=== PATIENT | male | born 1960 | race Asian ===

== ENCOUNTER 2017-06-19 06:39 | Day surgery (SDC) | payer OTHER ==
[~2017-06-19 06:39] MED LIST: Acetaminophen TAB* 325 MG PO PRN; Buffered Lidocaine 0.9% SYRIN* 5 ML/SYR SYRINGE INTRADERM ONE
[2017-06-19] MEDS ORDERED: Midazolam* 1 MG/ML 2 ML VIAL (2 MG) ONE ×2 (07:27→07:47)
[2017-06-19 08:20] VITALS: BP 113/89
--- NOTE | 2017-06-19 09:04 | OP ---
DATE OF OPERATION: 06/19/17 - [facility] DATE OF : 58 SURGEON: López Anne MD. ANESTHESIA: Monitored anesthesia care. PRE-OP DIAGNOSIS: Cataract, right eye. POST-OP DIAGNOSIS: Cataract, right eye. OPERATIVE PROCEDURE: Cataract surgery of the right eye. IMPLANTS: SN60WF 13.0 diopter lens to the right eye. COMPLICATIONS: None. DESCRIPTION OF PROCEDURE: The patient was given phenylephrine 2.5% and cyclopentolate 1% eyedrops to the operative eye in the preoperative area. The patient was brought to the operating room where a time-out was taken to identify the correct patient, site, and side of surgery. The patient's right eye was prepped and draped in the usual sterile fashion with 5% Betadine. A second time- out was taken to verify the correct patient, site, and side of surgery. A lid speculum was placed to the right eye. A 1 mm paracentesis blade was used to make a clear corneal incision in the superotemporal position. Preservative-free 1% lidocaine was injected into the anterior chamber. DisCoVisc was injected into the anterior chamber. A 2.75 mm keratome blade was used to make a triplanar incision at the inferotemporal position. A cystotome initiated a capsulorrhexis, which was completed with Utrata forceps in a continuous and curvilinear manner. Hydrodissection of the lens was performed with BSS on a cannula. The lens could be spun in the capsular bag. The phacoemulsification handpiece was used with a divide- and-conquer technique to remove the nucleus in its entirety with 10.99 CDE. The I/A handpiece then removed the residual cortical lens material. DisCoVisc was injected to inflate the capsular bag. The planned SN60WF 13.0 diopter lens was injected in a capsular bag. The residual DisCoVisc was removed from the eye with the I/A handpiece. The corneal incisions were hydrated and no leaks occurred at physiologic pressure around 20 mmHg per palpation. The lid speculum was removed and drapes removed. Maxitrol ointment was placed on the surface of the operative eye. An adhesive patch and shield was placed on the operative eye. The patient was taken to the postoperative area in stable condition. [id number]/[facility] #: [id number] JOHN
[2017-06-19] MEDS ORDERED: Cyclopentolate 1% OPTH.SOL* 2 ML BTL ONE (11:50)
[2017-06-19] MEDS ORDERED: Phenylephrine 2.5% OPTH.SOL* 2 ML BTL ONE (11:50)
[2017-06-19] MEDS ORDERED: acetaZOLAMIDE TAB* 250 MG ONE (11:50)
[2017-06-19] MEDS ORDERED: Buffered Lidocaine 0.9% SYRIN* 5 ML/SYR SYRINGE ONE (11:50)
[2017-06-19] MEDS ORDERED: Lidocaine 1% MPF* 2 ML VIAL ONE (11:50)
[2017-06-19] MEDS ORDERED: Tropicamide 1% OPTH.SOL* BTL ONE (11:50)
[2017-06-19] MEDS ORDERED: Povidone Iodine 5% OPTH* 30 ML BTL ONE (11:50)
[2017-06-19] MEDS ORDERED: Flurbiprofen 0.03% OPTH.SOL* 2.5 ML BTL ONE (11:50)
[2017-06-19] MEDS ORDERED: Neomycin/Polymy/Dex OPHTH.OIN* 3.5 GM ONE (11:50)
[2017-06-19] MEDS ORDERED: Tetracaine 0.5% OPTH.SOL 4 ML* 1 DROP BTL ONE (11:50)
== END 2017-06-19 08:50 | disposition home or self-care (01) ==
LOC: OREAST 06:39
PROVIDERS: ATTEND Student in an Organized Health Care Education/Training Program
DX: H25.13 Age-related nuclear cataract, bilateral (principal); E78.00 Pure hypercholesterolemia, unspecified; R51 Headache; I10 Essential (primary) hypertension; R73.01 Impaired fasting glucose; G47.30 Sleep apnea, unspecified; R76.11 Nonspecific reaction to tuberculin skin test without active tuberculosis; Z79.82 Long term (current) use of aspirin; Z88.0 Allergy status to penicillin; N41.9 Inflammatory disease of prostate, unspecified
CPT/HCPCS: A9270-GY; J2250; V2632

== ENCOUNTER 2017-06-26 06:22 | Day surgery (SDC) | payer OTHER ==
[2017-06-26] MEDS ORDERED: Midazolam* 1 MG/ML 2 ML VIAL (2 MG) ONE (07:24)
[2017-06-26 08:20] VITALS: BP 138/94
--- NOTE | 2017-06-26 08:50 | OP ---
DATE OF OPERATION: 06/26/17 - [facility] DATE OF : 58 SURGEON: López Anne MD ANESTHESIOLOGIST: Iliana Beatty MD ANESTHESIA: Monitored anesthesia care. PRE-OP DIAGNOSIS: Cataract, left eye. POST-OP DIAGNOSIS: Cataract, left eye. OPERATIVE PROCEDURE: Cataract surgery of the left eye. IMPLANTS: SN60WF 12.5 diopter lens, left eye. COMPLICATIONS: None. DESCRIPTION OF PROCEDURE: The patient was given phenylephrine 2.5% and cyclopentolate 1% eye drops to the operative eye in the preoperative area. The patient was brought to the operating room where a time-out was taken to identify the correct patient, side and site of the surgery. The patient's left eye was prepped and draped in the usual sterile fashion with 5% Betadine. A second time- out was taken to verify the correct patient, side and site of surgery, and correct lens selection. A lid speculum was placed to the left eye. A 1-mm paracentesis blade was used to make a clear corneal incision in the inferotemporal position. Preservative-free 1% lidocaine was injected into the anterior chamber. DisCoVisc was then injected into the anterior chamber. A 2.75-mm keratome blade was used to make a triplanar incision at the superotemporal position. A cystotome initiated a capsulorrhexis, which was completed with Utrata forceps in a continuous and curvilinear manner. Hydrodissection of the lens was performed with BSS on a cannula. The lens could be spun in the capsular bag. The phacoemulsification handpiece was used with a [id number] technique to remove the nucleus in its entirety with 11.34 CDE. The I/A handpiece then removed the residual cortical lens material. DisCoVisc was injected to inflate the capsular bag. The planned SN60WF 12.5 diopter lens was injected into the capsular bag. The residual DisCoVisc was removed from the eye with the I/A handpiece. The corneal incisions were hydrated and no leaks occurred at physiologic pressure around 20 mmHg per palpation. The lid speculum was removed and drapes removed. Maxitrol ointment was placed to the surface of the operative eye. An adhesive patch and shield was placed on the operative eye. The patient was taken to the postoperative area in stable condition. [id number]/[facility] #: [id number] [facility]
[2017-06-26] MEDS ORDERED: Povidone Iodine 5% OPTH* 30 ML BTL ONE (11:32)
[2017-06-26] MEDS ORDERED: Buffered Lidocaine 0.9% SYRIN* 5 ML/SYR SYRINGE ONE (11:32)
[2017-06-26] MEDS ORDERED: acetaZOLAMIDE TAB* 250 MG ONE (11:32)
[2017-06-26] MEDS ORDERED: Tetracaine 0.5% OPTH.SOL 4 ML* 1 DROP BTL ONE (11:32)
[2017-06-26] MEDS ORDERED: Flurbiprofen 0.03% OPTH.SOL* 2.5 ML BTL ONE (11:32)
[2017-06-26] MEDS ORDERED: Neomycin/Polymy/Dex OPHTH.OIN* 3.5 GM ONE (11:32)
[2017-06-26] MEDS ORDERED: Lidocaine 1% MPF* 2 ML VIAL ONE (11:32)
[2017-06-26] MEDS ORDERED: Phenylephrine 2.5% OPTH.SOL* 2 ML BTL ONE (11:32)
[2017-06-26] MEDS ORDERED: Tropicamide 1% OPTH.SOL* BTL ONE (11:32)
[2017-06-26] MEDS ORDERED: Cyclopentolate 1% OPTH.SOL* 2 ML BTL ONE (11:32)
== END 2017-06-26 08:43 | disposition home or self-care (01) ==
LOC: OREAST 06:22
PROVIDERS: ATTEND Student in an Organized Health Care Education/Training Program
DX: H25.12 Age-related nuclear cataract, left eye (principal); Z96.1 Presence of intraocular lens; J30.2 Other seasonal allergic rhinitis; G47.30 Sleep apnea, unspecified; R51 Headache; I10 Essential (primary) hypertension; R73.01 Impaired fasting glucose; R76.11 Nonspecific reaction to tuberculin skin test without active tuberculosis; E78.5 Hyperlipidemia, unspecified; Z79.82 Long term (current) use of aspirin; Z88.0 Allergy status to penicillin
CPT/HCPCS: A9270-GY; J2250; V2632

== ENCOUNTER 2017-09-16 12:57 | Emergency (ER) | payer OTHER ==
[2017-09-16 14:58] VITALS: BP 143/86
[2017-09-16] MEDS ORDERED: Ibuprofen TAB* 600 MG PO ONE (16:03)
--- NOTE | 2017-09-16 16:05 | UC ---
FLU HPI - HPI Summary HPI Summary: 5 DAYS OF FEVER, MCCLAIN, BODY ACHES, COUGH. WAS FEELING BETTER YESTERDAY THEN TODAY SUDDENLY GOT WORSE WITH INCREASED COUGH AND CHEST BURNING ASSOCIATED WITH COUGH. STATES THIS HAPPENED 4 YEARS AGO WHEN HAD THE FLU. HE DEVELOPED A SECONDARY PNA. IS CONCERNED THIS HAS HAPPENED AGAIN. - History of Current Complaint Chief Complaint: UCGeneralIllness Stated Complaint: FLU SYMPTOMS Time Seen by Provider: 09/16/17 15:53 Hx Obtained From: Patient Onset/Duration: Gradual Onset, Lasting Days, Still Present Severity Currently: Moderate Severity Initially: Moderate Pain Intensity: 6 Pain Scale Used: 0-10 Numeric Associated Signs & Symptoms: Positive: Fever, Myalgia, Cough, Headache - Allergy/Home Medications Allergies/Adverse Reactions: Allergies Allergy/AdvReac Type Severity Reaction Status Date / Time Penicillins Allergy Rash Verified 09/16/17 14:47 PMH/Surg Hx/FS Hx/Imm Hx - Additional Past Medical History Additional PMH: ARTHRITIS Cardiovascular History: Hypertension - Surgical History Surgical History: Yes Surgery Procedure, Year, and Place: WISDOM TEETH 1986. SINUS SURGERY [facility]. cataract surgery Jun 2017 - Family History Known Family History: Positive: Hypertension - Social History Alcohol Use: None Substance Use Type: None Smoking Status (MU): Never Smoked Tobacco Have You Smoked in the Last Year: No Review of Systems Constitutional: Fever, Chills, Fatigue Respiratory: Shortness Of Breath, Cough Cardiovascular: Negative Gastrointestinal: Nausea Musculoskeletal: Myalgia Neurological: Headache All Other Systems Reviewed And Are Negative: Yes Physical Exam Triage Information Reviewed: Yes Appearance: No Pain Distress, Well-Nourished, Ill-Appearing - MOD Vital Signs: Initial Vital Signs Temp 101.9 F 09/16/17 14:49 Pulse 102 09/16/17 14:49 Resp 20 09/16/17 14:49 BP 143/86 09/16/17 14:49 Pulse Ox 96 09/16/17 14:49 Vital Signs Reviewed: Yes Eyes: Positive: Conjunctiva Clear ENT: Positive: Hearing grossly normal, Pharynx normal, TMs normal Neck: Positive: Supple, Nontender, No Lymphadenopathy Respiratory Exam: Normal Cardiovascular: Positive: Tachycardia Abdomen Description: Positive: Soft Musculoskeletal: Positive: No Edema Neurological: Positive: Alert Psychological: Positive: Normal Response To Family, Age Appropriate Behavior Skin: Negative: rashes Diagnostics - Laboratory Diagnostic Studies Completed/Ordered: INFLUENZA B POSITIVE - Radiology CHEST XRAY Xray Interpretation: Positive (See Comments) - Minimal basilar atelectasis. No compelling evidence for pneumonia. Radiology Interpretation Completed By: Radiologist Flu Course/Dx - Differential Dx/Diagnosis Provider Diagnoses: 1. INFLUENZA B. 2. BRONCHITIS Discharge - Discharge Plan Condition: Stable Disposition: HOME Prescriptions: Azithromycin 500 mg PO DAILY #5 tab Codeine Phosphate/Guaifenesin [Codeine-Guaifen 10-100 mg/5 ml] 5 - 10 ml PO Q6H PRN #150 ml MDD 40ML PRN Reason: Cough Patient Education Materials: Influenza (ED), Acute Bronchitis (ED) Forms: *Work Release Referrals: Marily Ruvalcaba MD [Primary Care Provider] - 1 Week Additional Instructions: Minimal basilar atelectasis. No compelling evidence for pneumonia on xray. Will cover for possible secondary infection with azithromycin. Cough medicine as needed. SWAB POSITIVE FOR INFLUENZA B. OTC MEDS NEEDED FOR FEVER, BODY ACHES. STAY WELL HYDRATED AND RESTED. SEEK FOLLOW-UP IF YOU ARE NOT IMPROVING EXPECTED.
--- NOTE | 2017-09-16 16:35 | RAD ---
INDICATION: Chest pain following coughing. Shortness of breath. Fever. COMPARISON: May 29, 2017 TECHNIQUE: Dual energy PA and routine lateral views of the chest were obtained. REPORT: Minimal linear basilar atelectasis. Negative for pleural effusion or pneumothorax. The heart, pulmonary vasculature, and mediastinal contours are unremarkable. IMPRESSION: Minimal basilar atelectasis. No compelling evidence for pneumonia.
== END 2017-09-16 17:08 | disposition home or self-care (01) ==
LOC: UCEAST 12:57
DX: J10.1 Influenza due to other identified influenza virus with other respiratory manifestations (principal); J40 Bronchitis, not specified as acute or chronic; I10 Essential (primary) hypertension; M19.90 Unspecified osteoarthritis, unspecified site; Z88.0 Allergy status to penicillin
CPT/HCPCS: 71046; 87502; 99212; A9270-GY; G0463

== ENCOUNTER 2019-01-06 13:06 | Emergency (ER) | payer OTHER ==
[2019-01-06 13:19] VITALS: BP 124/79
--- NOTE | 2019-01-06 13:23 | UC ---
Skin Complaint HPI - HPI Summary HPI Summary: patient notice a tick on his back this afternoon---thinks it has been there for 24-48 hours---tick remains on back - History of Current Complaint Chief Complaint: UCRash Time Seen by Provider: 01/06/19 13:13 Stated Complaint: TICK Hx Obtained From: Patient Onset/Duration: Sudden Onset, Lasting Days - 1-2 Timing: Constant Pain Intensity: 0 Location: Discrete Aggravating Factor(s): Nothing Alleviating Factor(s): Nothing Associated Signs & Symptoms: Positive: Negative Related History: Insect Bite/Sting - Allergy/Home Medications Allergies/Adverse Reactions: Allergies Allergy/AdvReac Type Severity Reaction Status Date / Time Penicillins Allergy Rash Verified 01/06/19 13:19 Home Medications: Home Medications LoraTADine TAB(NF) [Claritin 10 MG TAB(NF)] 10 mg PO DAILY 01/06/19 [History Confirmed 01/06/19] PMH/Surg Hx/FS Hx/Imm Hx Previously Healthy: No Endocrine History: Dyslipidemia Cardiovascular History: Hypertension - Surgical History Surgical History: Yes Surgery Procedure, Year, and Place: WISDOM TEETH 1986 ;. SINUS SURGERY ;. CATARACTS Jun 2017 ; - Family History Known Family History: Positive: Hypertension - Social History Occupation: Employed Full-time Lives: With Family Alcohol Use: None Substance Use Type: None Smoking Status (MU): Never Smoked Tobacco Have You Smoked in the Last Year: No Review of Systems All Other Systems Reviewed And Are Negative: Yes Constitutional: Positive: Negative Skin: Positive: Other - tick embedded in back Eyes: Positive: Negative ENT: Positive: Negative Respiratory: Positive: Negative Cardiovascular: Positive: Negative Gastrointestinal: Positive: Negative Genitourinary: Positive: Negative Motor: Positive: Negative Neurovascular: Positive: Negative Musculoskeletal: Positive: Negative Neurological: Positive: Negative Psychological: Positive: Negative Is Patient Immunocompromised?: No Physical Exam Triage Information Reviewed: Yes Appearance: Well-Appearing, No Pain Distress, Well-Nourished Vital Signs Reviewed: Yes Eye Exam: Normal Eyes: Positive: Conjunctiva Clear ENT Exam: Normal ENT: Positive: Normal ENT inspection, Hearing grossly normal. Negative: Nasal congestion, Trismus, Muffled voice, Hoarse voice Dental Exam: Normal Neck exam: Normal Neck: Positive: Supple, Nontender Respiratory Exam: Normal Respiratory: Positive: Chest non-tender, No respiratory distress, No accessory muscle use Cardiovascular Exam: Normal Cardiovascular: Positive: Pulses Normal, Brisk Capillary Refill Musculoskeletal Exam: Normal Musculoskeletal: Positive: Strength Intact, ROM Intact, No Edema Neurological Exam: Normal Neurological: Positive: Alert, Muscle Tone Normal Psychological Exam: Normal Skin: Positive: Other - intact tick on center of back Re-Evaluation - Re-Evaluation First Eval Change: Improved - tick removed alive and intact Course/Dx - Course Course Of Treatment: mild soap and water wash tick/lyme education patient elected to take 1 time dose of Doxycycline - Diagnoses Provider Diagnosis: Tick bite with subsequent removal of tick, Risk of exposure to Lyme disease Discharge - Sign-Out/Discharge Documenting (check all that apply): Patient Departure All imaging exams completed and their final reports reviewed: No Studies - Discharge Plan Condition: Stable Disposition: HOME Patient Education Materials: Lyme Disease (ED), Tick Bite (ED) Referrals: Marily Ruvalcaba MD [Primary Care Provider] - If Needed - Billing Disposition and Condition Condition: STABLE Disposition: Home
[2019-01-06] MEDS ORDERED: DOXYcycline CAP(*) 100 MG PO ONE (13:36)
== END 2019-01-06 13:48 | disposition home or self-care (01) ==
LOC: UCEAST 13:06
DX: T63.481A Toxic effect of venom of other arthropod, accidental (unintentional), initial encounter (principal); Y92.9 Unspecified place or not applicable; I10 Essential (primary) hypertension
CPT/HCPCS: 99212; A9270-GY; G0463